=== PATIENT | male | born 1945 | race Caucasian/White ===

== ENCOUNTER 2017-11-04 10:23 | Inpatient (IN) | payer OTHER ==
[~2017-11-04] VITALS: Ht 190.5 cm; Wt 103.9 kg
[~2017-11-04 10:23] MED LIST: ARICEPT 5 MG TAB5 MG PO; B-12500 MC1 SL; CELEXA20 MG PO; FINASTERIDE5 MG PO; FLOMAX0.4 MG PO; FOLTANX TABLET1 EACH PO; IPRATROPIUM BRO15 ML NS; L-GLUTAMINE500 M2 PO; MAGOX 400400 MG PO; OMEGA-31000 M1 PO; PETADOLEX50 MG PO; POTASSIUM99 M1 PO; PROSTATE HEALT1 EAC1 PO; STRONTIUM NITRAT1 GM MC; STROVITE FORTE1 EACH PO
[2017-11-04 10:29] VITALS: BP 133/75
[2017-11-04] MEDS ORDERED: PRESERVISION A1 EAC2 PO (10:41)
[2017-11-04] MEDS ORDERED: MAGOX 400400 MG PO (10:42)
[2017-11-04] MEDS ORDERED: VITAMIN B-12500 MCG PO (10:42)
[2017-11-04] MEDS ORDERED: GLUCOSAMINE S1000 M1 PO (10:42)
[2017-11-04] MEDS ORDERED: ARICEPT 5 MG TAB5 MG PO (10:43)
[2017-11-04] MEDS ORDERED: ASPIRIN81 M2 PO (10:43)
[2017-11-04] MEDS ORDERED: CALCIUM 500 +1 EAC5 PO (10:43)
[2017-11-04] MEDS ORDERED: REQUIP 1 MG TABL1 M1 PO (10:43)
[2017-11-04] MEDS ORDERED: NAMENDA 10 MG T10 MG PO (10:43)
[2017-11-04] MEDS ORDERED: TRAZODONE HCL50 MG PO (10:44)
[2017-11-04] MEDS ORDERED: PROSCAR 5MG TABL5 MG PO (10:44)
[2017-11-04] MEDS ORDERED: FLOMAX0.4 MG PO (10:44)
[2017-11-04] MEDS ORDERED: VIAGRA100 MG PO (10:45)
[2017-11-04 10:52] LABS: ABSOLUTE EOSINOPHILS 0.1 thou/uL (0.0-0.7); ABSOLUTE LYMPHOCYTES 1.7 thou/uL (0.8-5.3); ABSOLUTE MONOCYTES 0.5 thou/uL (0.0-1.2); BASOPHILS 0.8 %; EOSINOPHILS 2.5 %; HEMATOCRIT 41.5 % (42.0-52.0); HEMOGLOBIN 14.5 gm/dL (14.0-18.0); LYMPHOCYTES 31.4 %; MCH 31.8 pg (26.0-34.0); MCHC 34.9 g/dL (28.0-37.0); MCV 91.1 fL (80.0-100.0); MONOCYTES 8.7 %; MPV 7.3 fl. (7.2-11.1); NUCLEATED RBCS 0 /100WBC; PLATELET COUNT* 130 thou/uL (150-400); POLYS 56.6 %; RBC 4.56 mil/uL (4.50-6.00); RDW-CV 12.6 % (10.5-14.5); WBC 5.3 thou/uL (4.0-11.0)
[2017-11-04 11:00] LABS: ANION GAP 8 mmol/L (7-16); BUN 20 mg/dL (7-18); CALCIUM 8.8 mg/dL (8.5-10.1); CHLORIDE 107 mmol/L (98-107); CO2 27 mmol/L (21-32); CREATININE 1.3 mg/dL (0.6-1.3); GLUCOSE 121 mg/dL (70-99); POTASSIUM 4.2 mmol/L (3.5-5.1); SODIUM 142 mmol/L (136-145)
[2017-11-04 11:03] LABS: APTT 25.7 Seconds (25.0-31.3); INR 1.1; PROTIME 10.8 Seconds (9.20-11.50)
[2017-11-04 11:11] LABS: URINE BILIRUBIN NEGATIVE (Negative); URINE BLOOD NEGATIVE (Negative); URINE CLARITY CLEAR; URINE COLOR DARK YELLOW; URINE GLUCOSE-RANDOM NEGATIVE (Negative); URINE KETONES NEGATIVE (Negative); URINE LEUKOCYTES-REFLEX NEGATIVE (Negative); URINE NITRITE-REFLEX NEGATIVE (Negative); URINE PROTEIN NEGATIVE (Negative); URINE SPECIFIC GRAVITY 1.025 (1.005-1.030); URINE UROBILINOGEN 0.2 E.U./dl (0.2-1.0)
[2017-11-04 11:11] LABS: ALBUMIN 3.5 g/dL (3.4-5.0); ALKALINE PHOSPHATASE 39 U/L (46-116); NT-PRO BRAIN NAT PEPTIDE 166 pg/mL (<300); SGOT 18 U/L (15-37); SGPT 26 U/L (30-65); TOTAL BILIRUBIN 0.6 mg/dL (<0.1-1.0); TOTAL PROTEIN 6.3 g/dL (6.4-8.2); TROPONIN-I LEVEL <0.06 ng/mL (<0.06)
--- NOTE | 2017-11-04 11:15 | NUR ---
PT REFUSED NON-SKID SOCKS BEFORE AMBULATING TO RESTROOM.
--- NOTE | 2017-11-04 12:30 | NUR ---
PT BROUGHT MEAL TRAY FROM DIETARY
[2017-11-04 16:06] VITALS: BP 169/64
[2017-11-04 16:46] VITALS: BP 152/62
[2017-11-04 17:02] VITALS: BP 164/59
--- NOTE | 2017-11-04 17:13 | NUR ---
RECIEVED REPORT FROM KAYLA AND ASSUMED CARE OF PT @ 8686. PT A/O X4, AMBER @ 47, LUNGS SOUND CLEAR,BM TODAY-SOFT ABDOMEN,IV LEFT WRIST SALINE LOCKED. PT IS CALM AND COOPERATIVE WITH NO PAIN AT TIME OF ASSESSMENT. THIS NURSE AGREES WITH PREVIOUS NURSE ADMISSION ASSESSMENT AND HISTORY. PT IS UP WITH SBA BRP. PT LEFT RESTING IN BED WITH AT BEDSIDE.CALL LIGHT AND FALL PRECAUTIONS IN PLACE.WILL CONTINUE TO MONITOR PT.
--- NOTE | 2017-11-04 17:51 | 2DMMODE ---
[place] [address] 2 D/M-MODE ECHOCARDIOGRAM Name: ORALIA ZHANG Room: [address] IN [facility]#: [id number] Admission: 11/04/17 Attend Phys: Leonides Toney Discharge: Date of : 45 Date of Service: 11/04/17 1750 Report #: [id number] THIS REPORT FOR: //name// APPROVED REPORT Study performed: 11/04/2017 15:39:57 EXAM: Comprehensive 2D, Doppler, and color-flow Echocardiogram Patient Location: In-Patient Room #: ER Status: routine BSA: 2.26 HR: 49 bpm BP: 120/69 mmHg Rhythm: NSR Other Information Study Quality: Good Indications Dizziness 2D Dimensions LVEF(%): 64.79 (>50%) IVSd: 11.70 (7-11mm) LVOT Diam: 19.10 (18-24mm) LVDd: 52.33 mm PWd: 10.39 (7-11mm) Ascending Ao: 37.29 (22-36mm) LVDs: 33.65 (25-40mm) Aortic Root: 31.79 mm Landers's LVEF: 64.79 % Volumes Left Atrial Volume (Systole) LA ESV Index: 26.50 mL/m2 Aortic Valve AoV Peak Doug.: 2.60 m/s AO Peak Gr.: 27.11 mmHg LVOT Max P.28 mmHg AO Mean Gr.: 15.11 mmHg LVOT Mean P.91 mmHg LVOT Max V: 1.15 m/s AO V2 VTI: 64.74 cm LVOT Mean V: 0.80 m/s CHRIS (VTI): 1.37 cm2 LVOT V1 VTI: 30.95 cm Mitral Valve E/A Ratio: 0.86 [place] [address] 2 D/M-MODE ECHOCARDIOGRAM Name: ORALIA ZHANG Room: [address] IN .R.#: [id number] Admission: 11/04/17 Attend Phys: Leonides Toney Discharge: Date of : 45 Date of Service: 11/04/17 1750 Report #: [id number] MV Decel. Time: 329.44 ms MV E Max Doug.: 0.89 m/s MV PHT: 95.54 ms MVA (PHT): 2.30 cm2 TDI E/Lateral E': 6.85 E/Medial E': 8.90 Medial E' Doug.: 0.10 m/s Lateral E' Doug.: 0.13 m/s Pulmonary Valve PV Peak Doug.: 1.03 m/s PV Peak Gr.: 4.25 mmHg Tricuspid Valve TR Peak Gr.: 23.19 mmHg RVSP: 28.00 mmHg Left Ventricle The left ventricle is normal size. There is normal LV segmental wall motion. There is normal left ventricular wall thickness. Left ventricular systolic function is normal. LVEF is 60-65%. Grade I - abnormal relaxation pattern. Right Ventricle The right ventricle is normal size. The right ventricular systolic function is normal. Atria The left atrium size is normal. The right atrium size is normal. Aortic Valve The aortic valve is normal in structure. Bioprosthetic aortic valve is present. No aortic regurgitation is present. There is no aortic valvular stenosis. Mitral Valve The mitral valve is normal in structure. There is no mitral valve regurgitation noted. No evidence of mitral valve stenosis. Tricuspid Valve The tricuspid valve is normal in structure. Mild tricuspid regurgitation. The RVSP is 30 mmHg. Pulmonic Valve The pulmonary valve is normal in structure. There is no pulmonic [place] [address] 2 D/M-MODE ECHOCARDIOGRAM Name: ORALIA ZHANG Room: [address] IN [facility]#: [id number] Admission: 11/04/17 Attend Phys: Leonides Toney Discharge: Date of : 45 Date of Service: 11/04/17 1160 Report #: [id number] Great Vessels The aortic root is normal in size. IVC is normal in size and collapses with >50% inspiration Pericardium There is no pericardial effusion. <Conclusion> Normal echocardiogram. The left ventricle is normal size. There is normal left ventricular wall thickness. Left ventricular systolic function is normal. LVEF is 60-65%. Grade I - abnormal relaxation pattern. Bioprosthetic aortic valve is present. No aortic regurgitation is present. There is no aortic valvular stenosis. Mild tricuspid regurgitation. The RVSP is 30 mmHg. <ELECTRONICALLY SIGNED> By: Gene Nguyen MD, FACC 11/04/171749 49 49 Gene Nguyen MD, FACC /INF
--- NOTE | 2017-11-04 18:12 | EKG ---
[place] [address] ELECTROCARDIOGRAM REPORT Name: ORALIA ZHANG Room: [address] IN M.R.#: [id number] Admission: 11/04/17 Attend Phys: Leonides Pemberton, Discharge: Date of : 45 Report #: [id number] THIS REPORT FOR: //name// [facility] ED Test Date: 2017-11-04 Test Time: 10:42:52 Pat Name: ORALIA ZHANG Department: Room: [facility] Gender: M Clearing Hand: Adela NICOLAS : 1945 Requested By: Jamison Watkins Order Number: [id number] MD: Gene Nguyen Measurements Intervals [place] Rate: 53 P: 2 HI: 152 QRS: -25 QRSD: 97 T: 51 QT: 435 QTc: 409 Interpretive Statements Sinus rhythm Borderline left axis deviation Compared to ECG 05/07/2016 15:11:46 No significant changes Electronically Signed On 11-04-2017 18:12:19 CDT by Gene Nguyen [email or web address] <ELECTRONICALLY SIGNED> By: Gene Nguyen MD, [facility] 11/04/17 181 41 41 Gene Nguyen MD, FAC /EPI
--- NOTE | 2017-11-04 19:11 | NUR ---
PT RESTING COMFORTABLY IN BED WITH FALL PRECAUTIONS AND CALL LIGHT IN PLACE. HOURLY ROUNDING COMPLETED FOR PT SAFETY.
--- NOTE | 2017-11-04 19:21 | NUR ---
THIS RN AGREES WITH THE CHARTING FROM LOUISE HUBBARD ON 11/04/17.
[2017-11-04 20:00] VITALS: BP 118/48
[2017-11-05] VITALS (8 sets, daily range): BP systolic 97–170; BP diastolic 56–79
--- NOTE | 2017-11-05 03:27 | NUR ---
PT ALERT ORIENTED BUT FORGETFUL. TELEMETRY SHOWS SB-ST 40S TO 60S. PT CALLS OUT APPROPRIATELY FOR ASSIST WITH BR. WILL CONTINUE TO MONITOR.
[2017-11-05 13:18] LABS: HEMATOCRIT 41.3 % (42.0-52.0); HEMOGLOBIN 14.4 gm/dL (14.0-18.0); MCH 31.8 pg (26.0-34.0); MCV 90.9 fL (80.0-100.0); MPV 7.2 fl. (7.2-11.1); RBC 4.54 mil/uL (4.50-6.00); RDW-CV 12.7 % (10.5-14.5); WBC 6.3 thou/uL (4.0-11.0)
[2017-11-05 13:29] LABS: CALCIUM 9.2 mg/dL (8.5-10.1); CREATININE 1.2 mg/dL (0.6-1.3); POTASSIUM 4.3 mmol/L (3.5-5.1)
--- NOTE | 2017-11-05 18:49 | NUR ---
ASSUMED CARE OF PT AT 0730. PT A&0X4, PLEASANT, FORGETFUL AT TIMES. NEURO CHECKS COMPLETED Q4H. REFER TO CHARTING. PT TRACING SB ON THE SPRINKLER FITTER. RATE IN THE 40'S. PT ASYMPTOMATIC. ORTHOSTATIC BLOOD PRESSURES OBTAINED- RESULTS WERE POSITIVE. PT ASYMPTOMATIC WITH DROP IN PRESSURE. REFER TO CHARTING. PT ON RA SAT UPPER 90'S. DENIES ANY SHORTNESS OF BREATH OR PAIN. PT UP SBA TO BATHROOM. CARDIOLOGY AND NEUROLOGY CONSULT IN PLACE. ENT CONSULTED TODAY FOR RECURRENT DIZZINESS AND VERTIGO. PT HAD US CAROTIDS TODAY. REFER TO RESULTS. PT SHOWERED WITH SBA AND NURSING STAFF TODAY. FAMILY AT BEDSIDE THIS AM. PT UP TO CHAIR FOR MEALS. TOLERATED WELL. AM ASSESSMENT CHARTED. MEDICATIONS PER OCT. PT REPOSITIONS SELF. HOURLY ROUNDING OBSERVED. BED IN LOW POSITION. BED ALARM IN PLACE. FALL PRECAUTIONS IN PLACE. CALL LIGHT WITHIN REACH. WILL CONTINUE PLAN OF CARE.
[2017-11-06 00:12] VITALS: BP 176/65
--- NOTE | 2017-11-06 01:25 | NUR ---
PT ALERT ORIENTED FORGETFUL. AMBULATES IN [place] AND BATHROOM WITH STD BY ASSIST. TELEMETRY SHOWS SR. WILL CONTINUE TO MONITOR.
[2017-11-06 04:00] VITALS: BP 144/58
[2017-11-06 04:15] LABS: HEMOGLOBIN 14.7 gm/dL (14.0-18.0); MCH 31.9 pg (26.0-34.0); MCHC 35.8 g/dL (28.0-37.0); MCV 89.2 fL (80.0-100.0); MPV 7.5 fl. (7.2-11.1); RBC 4.6 mil/uL (4.50-6.00); RDW-CV 12.7 % (10.5-14.5)
[2017-11-06 04:33] LABS: CALCIUM 8.8 mg/dL (8.5-10.1); CREATININE 1.2 mg/dL (0.6-1.3)
[2017-11-06 08:00] VITALS: BP 124/64
--- NOTE | 2017-11-06 09:00 | NUR ---
ASSUMED CARE OF PT AT 0730. PT RESTING IN BED WAITING FOR BREAKFAST. PT A&0X4, PLEASANT, FORGETFUL AT TIMES. FLAT AFFECT. PT DENIES ANY PAIN OR SHORTNESS OF BREATH. PT STATES HE IS READY TO GO HOME. PT TRACING SB ON THE BLINDSTITCH LAPEL PADDER. RATE IN THE 40-50'S. ON RA SAT UPPER 90'S. ORTHOSTATICS DAILY. NEURO CHECKS Q4H. PT UP SBA TO BATHROOM. AT BEDSIDE. AM ASSESSMENT CHARTED. MEDICATIONS PER OCT. PT REPOSITIONS SELF. HOURLY ROUNDING OBSERVED. BED IN LOW POSITION. CALL LIGHT WITHIN REACH. WILL CONTINUE PLAN OF CARE.
[2017-11-06 12:00] VITALS: BP 105/66; BP 135/63; BP 93/56
[2017-11-06 16:00] VITALS: BP 152/74
--- NOTE | 2017-11-06 18:48 | NUR ---
NO ACUTE CHANGES THROUGHOUT SHIFT. REFER TO CHARTING. DR ROSAS HERE TO SEE PT AND WANTS TO KEEP PT OVER NIGHT DUE TO POSITIVE ORTHOSTATS AND BRADYCARDIA. PHYSICAL AND OCCUPATIONAL THERAPY ALSO ORDERED PER DR ROSAS. FINASTERIDE ALSO DISCONTINUED. REFER TO EMAR. PT AMBULATED IN HALLWAY WITH AND NURSING STAFF WITH NO DIFFICULTIES. PT UP TO CHAIR FOR MEALS. CONTINUES TO TRACE SB ON THE SENIOR DESIGNER/ART DIRECTOR. RATE IN THE 40-50'S. NEURO CHECKS COMPLETED Q4H. REFER TO CHARTING. ON RA SAT UPPER 90'S. PT DENIES ANY PAIN OR SHORTNESS OF BREATH THROUGHOUT SHIFT. PT UP SBA TO BATHROOM. MEDICATIONS PER OCT. PT REPOSITIONS SELF. HOURLY ROUNDING OBSERVED. BED IN LOW POSITION. CALL LIGHT WITHIN REACH. WILL CONTINUE PLAN OF CARE.
[2017-11-06 19:45] VITALS: BP 145/68
[2017-11-07] VITALS (7 sets, daily range): BP systolic 104–165; BP diastolic 67–78
--- NOTE | 2017-11-07 04:21 | NUR ---
END SHIFT: PT RESTED WELL. NO COMPLAINTS. NO PAIN. UP WALKING UNIT WITH NO PROBLEMS. NEURO CHECKES REMAINS NORMAL AND UNCHANGED. SB ON MONITOR. PT STATES HE WANTS TO GO HOME. ASSESSMENT UNCHANGED. VSS. SAFETY PRECAUTIONS IN PLACE, CALL LIGHT IN REACH. PERFORMED HOURLY ROUNDING. WILL CONT TO MONITOR.
[2017-11-07 04:55] LABS: HEMATOCRIT 40.8 % (42.0-52.0); HEMOGLOBIN 14.5 gm/dL (14.0-18.0); MCH 31.7 pg (26.0-34.0); MCHC 35.6 g/dL (28.0-37.0); MCV 89.1 fL (80.0-100.0); MPV 7.5 fl. (7.2-11.1); RBC 4.58 mil/uL (4.50-6.00); RDW-CV 12.9 % (10.5-14.5)
[2017-11-07 05:17] LABS: CALCIUM 9.2 mg/dL (8.5-10.1); CREATININE 1.3 mg/dL (0.6-1.3); POTASSIUM 4.3 mmol/L (3.5-5.1)
--- NOTE | 2017-11-07 08:00 | NUR ---
PT IS A & 0 X4, ABLE TO COMMUNICATE NEEDS TO STAFF. VS WNL. SB ON MONITOR. ORTHOSTATIC BP UPON STANDING IS 40 mmHg LOWER SYSTOLICALLY THAN LYING AND SITTING. 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 PT WITHOUT DIZZINESSS TODAY. NEEDED ITEMS AND CALL LIGHT WITHIN REACH.
[2017-11-07 09:51] LABS: CHOLESTEROL 181 mg/dL (<200); HDL CHOLESTEROL 46 mg/dL (>40); LDL CHOLESTEROL 111 mg/dL (<100); TC:HDL 3.9 Ratio (Not establshd); TRIGLYCERIDE 124 mg/dL (<150); VLDL 25 mg/dL (<40)
[2017-11-07 09:55] LABS: SERUM ASSESSMENT Clear
--- NOTE | 2017-11-07 12:00 | NUR ---
MET WITH PT TO DISCUSS HOME SITUATION/DC PLANNING. PT LIVES WITH . HE STATES HE IS INDEPENDENT AND ACTIVE. STILL DRIVES SOME. PT USES NO EQUIPMENT AND HASN'T HAD HH. PLANS TO RETURN HOME AT DC, HOPES TODAY. NO NEEDS ID'D
--- NOTE | 2017-11-07 13:46 | NUR ---
PT'S MEDICAL CHART REVIEWED AND STATUS DISCUSSED W/ NSG. PT IS UP AD [facility] IN ROOM W/O DME DEMONSTRATING STABLE TRANSFERS AND GAIT. FAMILY AND PT INDICATE ACCESS TO RW/CANE AT HOME. PT AND FAMILY VOICE NO CONCERNS W/ DISCHARGE TO HOME. NO FURTHER ACUTE PT SERVICES ARE INDICATED.
--- NOTE | 2017-11-07 15:01 | NUR ---
ORDER RECEIVED FOR OCCUPATIONAL THERAPY EVALUATION. CHART REVIEWED AND PATIENT DISCHARGED PRIOR TO OCCUPATIONAL THERAPY EVALUATION. PER NURSING PATIENT HAD BEEN AD PARADISE IN ROOM AND PER PHYSICAL THERAPY PATIENT HAD NO ISSUES.
--- NOTE | 2017-11-17 19:10 | CON ---
[facility] [address] [place] [address] CONSULTATION Name: ORALIA ZHANG Mary Room: [address] IN .R.#: [id number] Admission: 11/04/17 Attend Phys: Leonides Pemberton, Discharge: 11/07/17 Date of : 45 Report #: [id number] THIS REPORT FOR: //name// CC: Luis Armando Pemberton DATE OF SERVICE: 11/05/2017 HISTORY OF PRESENT ILLNESS: This is a 72-year-old male patient who indicates that he is admitted with dizziness. He indicates that this dizziness is present for a long time. He usually goes to Dr. Wilburn, an ENT physician. He had some maneuvers done with him and usually that takes care of this dizziness. He is being seen by Cardiology because it was noticed that he may have some bradycardia. He does not know anything which makes this dizziness better or worse. It had started spontaneously without any trauma. 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 He goes to a neurologist. I tried to reach the patient's and I am not able to reach the number which I have. He does see a neurologist. He is still able to ambulate and so I do not know how severe his Parkinson's and his dementia is. He does not know what medication he takes, but looks like he has been on Namenda for Alzheimer's, but does not look like he is on any Parkinson's medications here. He also is on vitamin B12, but he does not know whether he actually had vitamin B12 deficiency or not. He was feeling weak, but he does not feel he is feeling weak anymore. History also indicates that he takes erectile dysfunction medication and looks like at one time he was on donepezil, and I do not know whether he is taking it now or not because I cannot reach the patient's . He says sometimes he feels depressed. 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 He is not having any respiratory difficulty or any GI, symptoms. He is not complaining of any new musculoskeletal, constitutional, dermatological, psychiatric, endocrine or allergic symptom. PAST MEDICAL HISTORY: Positive for dizziness. FAMILY HISTORY: Negative for early age stroke. SOCIAL HISTORY: He lives with his , but I am not able to reach the patient's . PHYSICAL EXAMINATION: Indicate that the patient is alert, responsive. He can tell me what month it is, he can tell me approximate date. He knows what hospital he is in. He indicates that it is his favorite hospital. He was able to name the president. His speech looks okay. His cranial nerve examination 2-12 is unremarkable. He has symmetrical strength, sensation, reflexes and tone in all four extremities. His reflexes may be somewhat diminished symmetrically. He has no cerebellar sign. There is no carotid bruit. [place] [address] CONSULTATION Name: ORALIA ZHANG Room: [address]#: [id number] Admission: 11/04/17 Attend Phys: Leonides Pemberton, Discharge: 11/07/17 Date of : 45 Report #: [id number] mass. He is a reasonably well-developed individual who does not have any dysmorphic features of eyes, ears and face. His vision and hearing looks adequate. His blood pressure is 138/59, respirations 16, pulse is 46, temperature is 98.1. He does not have any edema, cyanosis or jaundice. His pulses are difficult to feel. LABORATORY DATA: His hemoglobin is 5.3. His GFR is normal. He did have a CT scan of the head, which was mostly unremarkable. IMPRESSION: 1. Dizziness. It is unlikely that there is any neurological etiology for the patient's dizziness. He is bradycardic and he has a prior history of ENT pathology, which has responded to ENT maneuvers. 2. I cannot fully exclude the central nervous system pathology. I do not know what testing he had in the past and I need to reach the patient's to find that out. 3. He does have a history of Parkinson's and dementia. His memory does look diminished, but he is not on any medication. So again, I need to take the patient's to get further history to what workup was done. RECOMMENDATIONS: We will try to reach the patient's . Depending upon her information we might check an MRI in this patient to make sure there is no neurological etiology for the patient's dizziness. I will also discuss with her to see what we need to do about the medication. If he already has a neurologist, we might even let him follow up with their own neurologist. I will try to reach her later again today and see if we can reach this patient's . I discussed all of it in detail with the patient. I am not sure how he understands that are not, but I will also try to talk to the patient's . <ELECTRONICALLY SIGNED> By: Taj Valerio MD 11/17/171909 1140 1220Parrogers Valerio MD /nt
[2017-12-06] MEDS ORDERED: VITAMIN D2000 UNIT PO (13:48)
[2017-12-06] MEDS ORDERED: REQUIP 1 MG TABL1 M1 PO (13:49)
[2017-12-06] MEDS ORDERED: ARICEPT 5 MG TAB5 MG (13:49)
[2017-12-06] MEDS ORDERED: PROSCAR 5MG TABL5 MG PO (13:49)
== END 2017-11-07 15:00 | disposition home or self-care (01) | DRG 308 ==
LOC: M.ERS 10:23 → M.TBA-ER 11:52 → M.2W 11:52
PROVIDERS: Emergency Medicine; Internal Medicine; ADMIT Family Medicine
PROC: B24BZZ4 Ultrasonography of Heart with Aorta, Transesophageal (ICD-10-PCS; principal; 2017-11-04)
DX: R00.1 Bradycardia, unspecified (principal); G93.40 Encephalopathy, unspecified; R42 Dizziness and giddiness; G20 Parkinson's disease; G30.9 Alzheimer's disease, unspecified; F02.80 Dementia in other diseases classified elsewhere, unspecified severity, without behavioral disturbance, psychotic disturbance, mood disturbance, and anxiety; I65.23 Occlusion and stenosis of bilateral carotid arteries; N40.0 Benign prostatic hyperplasia without lower urinary tract symptoms; E78.00 Pure hypercholesterolemia, unspecified; Z95.2 Presence of prosthetic heart valve; Z85.828 Personal history of other malignant neoplasm of skin; Z90.49 Acquired absence of other specified parts of digestive tract; Z79.82 Long term (current) use of aspirin; Z79.899 Other long term (current) drug therapy; Z82.49 Family history of ischemic heart disease and other diseases of the circulatory system

== ENCOUNTER 2017-12-13 13:03 | Emergency (ER) | payer OTHER ==
[~2017-12-13] VITALS: Ht 190.5 cm; Wt 90.7 kg
[~2017-12-13 13:03] MED LIST changes: +ARICEPT 5 MG TAB5 MG; +ASPIRIN81 M2 PO; +CALCIUM 500 +1 EAC5 PO; +GLUCOSAMINE S1000 M1 PO; +NAMENDA 10 MG T10 MG PO; +PRESERVISION A1 EAC2 PO; +PROSCAR 5MG TABL5 MG PO; +REQUIP 1 MG TABL1 M1 PO; +TRAZODONE HCL50 MG PO; +VIAGRA100 MG PO; +VITAMIN B-12500 MCG PO; +VITAMIN D2000 UNIT PO
[2017-12-13] MEDS ORDERED: PRESERVISION A1 EAC2 PO (13:18)
[2017-12-13 13:22] LABS: ABSOLUTE EOSINOPHILS 0.1 thou/uL (0.0-0.7); ABSOLUTE LYMPHOCYTES 2.1 thou/uL (0.8-5.3); ABSOLUTE MONOCYTES 0.5 thou/uL (0.0-1.2); ABSOLUTE NEUTROPHILS 5.4 thou/uL (1.6-8.1); BASOPHILS 0.4 %; EOSINOPHILS 1.5 %; HEMOGLOBIN 14.2 gm/dL (14.0-18.0); LYMPHOCYTES 25.9 %; MCH 31.6 pg (26.0-34.0); MCHC 34.7 g/dL (28.0-37.0); MCV 91.1 fL (80.0-100.0); MONOCYTES 5.9 %; NUCLEATED RBCS 0 /100WBC; PLATELET COUNT* 170 thou/uL (150-400); POLYS 66.3 %; RDW-CV 12.8 % (10.5-14.5); WBC 8.2 thou/uL (4.0-11.0)
[2017-12-13 13:28] LABS: POC CA IONIZED 4.8 mg/dL (4.5-5.3); POC CREATININE 1.3 mg/dL (0.6-1.3); POC HEMOGLOBIN 12.9 g/dL (12.0-17.0); POC POTASSIUM 4.4 mmol/L (3.5-4.9)
[2017-12-13 13:30] LABS: ANION GAP 7 mmol/L (7-16); BUN 21 mg/dL (7-18); CALCIUM 8.8 mg/dL (8.5-10.1); CHLORIDE 108 mmol/L (98-107); CO2 29 mmol/L (21-32); CREATININE 1.4 mg/dL (0.6-1.3); GLUCOSE 143 mg/dL (70-99); POTASSIUM 4.5 mmol/L (3.5-5.1); SODIUM 144 mmol/L (136-145)
[2017-12-13 13:31] LABS: APTT 24.5 Seconds (25.0-31.3); INR 1.1; PROTIME 10.9 Seconds (9.20-11.50)
[2017-12-13 13:36] LABS: ALBUMIN 3.5 g/dL (3.4-5.0); ALKALINE PHOSPHATASE 38 U/L (46-116); SGOT 10 U/L (15-37); SGPT 18 U/L (30-65); TOTAL BILIRUBIN 0.6 mg/dL (<0.1-1.0); TOTAL PROTEIN 6.3 g/dL (6.4-8.2); TROPONIN-I LEVEL <0.06 ng/mL (<0.06)
[2017-12-13 14:02] VITALS: BP 104/68
--- NOTE | 2017-12-14 15:05 | EKG ---
[place] [address] ELECTROCARDIOGRAM REPORT Name: VICENTEORALIA Hernandez Room: 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 Machine Operator: Adela PATEL : 1945 Requested By: Mika Maldonado Order Number: [id number] MD: Oralia Munoz Measurements Intervals [place] Rate: 63 P: [place]: 128 QRS: -25 QRSD: 154 T: 116 QT: 469 QTc: 481 Interpretive Statements Atrial-paced rhythm Left bundle branch block Compared to ECG 12/06/2017 13:22:33 Sinus bradycardia no longer present Ventricular premature complex(es) no longer present Electronically Signed On 12-14-2017 15:04:43 CDT by Oralia Munoz [email or web address] <ELECTRONICALLY SIGNED> By: Oralia Munoz MD, [facility] 12/14/17 1504 1345 1345 Oralia Munoz MD, [facility] /EPI
== END 2017-12-13 14:12 | disposition home or self-care (01) ==
LOC: M.ERS 13:03
PROVIDERS: Family Medicine
DX: R51 Headache (principal); Z85.828 Personal history of other malignant neoplasm of skin; G20 Parkinson's disease; G30.9 Alzheimer's disease, unspecified; F02.80 Dementia in other diseases classified elsewhere, unspecified severity, without behavioral disturbance, psychotic disturbance, mood disturbance, and anxiety

== ENCOUNTER 2018-06-23 13:03 | Emergency (ER) | payer OTHER ==
[~2018-06-23] VITALS: Ht 190.5 cm; Wt 92.5 kg
[2018-06-23] MEDS ORDERED: CALCITRATE200 MG PO (13:17)
[2018-06-23] MEDS ORDERED: REMERON15 MG PO (13:19)
[2018-06-23] MEDS ORDERED: MIDODRINE HCL 55 M1 PO (13:19)
[2018-06-23] MEDS ORDERED: SINEMET 10-1001 EAC1 PO (13:20)
[2018-06-23] MEDS ORDERED: MELATONIN3 MG PO (13:20)
[2018-06-23 13:43] LABS: ABSOLUTE BASOPHILS 0.1 thou/uL (0.0-0.2); ABSOLUTE EOSINOPHILS 0.1 thou/uL (0.0-0.7); ABSOLUTE LYMPHOCYTES 2.1 thou/uL (0.8-5.3); ABSOLUTE MONOCYTES 0.6 thou/uL (0.0-1.2); ABSOLUTE NEUTROPHILS 4.8 thou/uL (1.6-8.1); BASOPHILS 0.9 %; EOSINOPHILS 1.1 %; HEMATOCRIT 42.4 % (42.0-52.0); HEMOGLOBIN 14.6 gm/dL (14.0-18.0); LYMPHOCYTES 27.7 %; MCH 31.2 pg (26.0-34.0); MCHC 34.3 g/dL (28.0-37.0); MCV 90.8 fL (80.0-100.0); MONOCYTES 7.6 %; MPV 7.1 fl. (7.2-11.1); NUCLEATED RBCS 0 /100WBC; PLATELET COUNT* 170 thou/uL (150-400); POLYS 62.7 %; RBC 4.67 mil/uL (4.50-6.00); RDW-CV 13.2 % (10.5-14.5); WBC 7.6 thou/uL (4.0-11.0)
[2018-06-23 13:54] LABS: APTT 25.6 Seconds (25.0-31.3); INR 1.1
[2018-06-23 13:59] LABS: ANION GAP 6 mmol/L (7-16); BUN 22 mg/dL (7-18); CHLORIDE 104 mmol/L (98-107); CO2 29 mmol/L (21-32); CREATININE 1.4 mg/dL (0.6-1.3); GLUCOSE 117 mg/dL (70-99); POTASSIUM 4.2 mmol/L (3.5-5.1); SODIUM 139 mmol/L (136-145)
[2018-06-23 14:03] LABS: ALBUMIN 3.7 g/dL (3.4-5.0); ALKALINE PHOSPHATASE 47 U/L (46-116); NT-PRO BRAIN NAT PEPTIDE 220 pg/mL (<300); SGOT 13 U/L (15-37); SGPT 9 U/L (30-65); TOTAL BILIRUBIN 0.6 mg/dL (<0.1-1.0); TOTAL PROTEIN 6.7 g/dL (6.4-8.2); TROPONIN-I LEVEL <0.06 ng/mL (<0.06)
[2018-06-23] MEDS ORDERED: ANTIVERT25 MG PO (15:31)
--- NOTE | 2018-06-23 15:50 | EKG ---
[place] [address] ELECTROCARDIOGRAM REPORT Name: ORALIA ZHANG Room: [facility]#: [id number] Admission: 06/23/18 Attend Phys: Discharge: Date of : 45 Report #: [id number] THIS REPORT FOR: //name// [facility] ED Test Date: 2018-06-23 Test Time: 13:17:40 Pat Name: ORALIA ZHANG Department: Room: Gender: Crane Helper: Adela NICOLAS : 1945 Requested By: Ralu Mon Order Number: [id number] MD: Jay Tatum Measurements Intervals [place] Rate: 65 P: 27 [place]: 113 QRS: -20 QRSD: 159 T: 147 QT: 448 QTc: 466 Interpretive Statements AV paced rhythm Compared to ECG 12/13/2017 13:45:45 no change Electronically Signed On 06-23-2018 15:50:38 CDT by Jay Tatum [email or web address] <ELECTRONICALLY SIGNED> By: Jay Tatum MD, [facility] 06/23/18 1550 1317 1317 Jay Tatum MD, FACC /EPI
[2018-06-23 16:24] VITALS: BP 160/90
== END 2018-06-23 16:25 | disposition home or self-care (01) ==
LOC: M.ERS 13:03
PROVIDERS: Emergency Medicine Emergency Medical Services
DX: H81.10 Benign paroxysmal vertigo, unspecified ear (principal); I95.1 Orthostatic hypotension; Z85.828 Personal history of other malignant neoplasm of skin; Z90.49 Acquired absence of other specified parts of digestive tract

== ENCOUNTER 2018-12-30 19:12 | Emergency (ER) | payer OTHER ==
[~2018-12-30] VITALS: Ht 190.5 cm; Wt 89.4 kg
[~2018-12-30 19:12] MED LIST changes: +ANTIVERT25 MG PO; +CALCITRATE200 MG PO; +MELATONIN3 MG PO; +MIDODRINE HCL 55 M1 PO; +REMERON15 MG PO; +SINEMET 10-1001 EAC1 PO
[2018-12-30] MEDS ORDERED: SINEMET 10-1001 EAC1 PO (19:43)
[2018-12-30 21:01] VITALS: BP 194/105
== END 2018-12-30 21:02 | disposition home or self-care (01) ==
LOC: M.ERS 19:12
DX: K59.00 Constipation, unspecified (principal); G20 Parkinson's disease; G30.9 Alzheimer's disease, unspecified; F02.80 Dementia in other diseases classified elsewhere, unspecified severity, without behavioral disturbance, psychotic disturbance, mood disturbance, and anxiety; Z85.828 Personal history of other malignant neoplasm of skin; Z95.0 Presence of cardiac pacemaker

== ENCOUNTER → 2019-01-18 | Outpatient (CLI) | payer OTHER | LOC: M.LAB 15:30 → M.MRI 16:30 | DX: R90.82 White matter disease, unspecified (principal); G30.9 Alzheimer's disease, unspecified; I48.0 Paroxysmal atrial fibrillation; I10 Essential (primary) hypertension; G20 Parkinson's disease; F03.91 Unspecified dementia, unspecified severity, with behavioral disturbance; Z79.899 Other long term (current) drug therapy; Z95.0 Presence of cardiac pacemaker; Z95.2 Presence of prosthetic heart valve ==